=== PATIENT | female | born 1995 | race Caucasian/White ===

== ENCOUNTER 2017-09-09 01:10 | Emergency (ER) | payer OTHER ==
[~2017-09-09 01:10] MED LIST: AMOX-559 PO; CHOL100059 PO
[2017-09-09] MEDS ORDERED: AMOX-559 PO ×2 (01:18→02:00)
--- NOTE | 2017-09-09 01:21 | ER Report ---
History and Physical Time Seen By MD: 01:16 Hx. of Stated Complaint: Sore throat and fever 101.7 HPI/ROS CHIEF COMPLAINT: Sore throat, fever HISTORY OF PRESENT ILLNESS: 22-year-old female presents ambulatory to the ER complaining of severe sore throat since last night. She difficulty swallowing and breathing. Patient notes a fever. She's had some nausea but no vomiting. Patient has a history of a peritonsillar abscess 1 year ago. Patient is a in flight technician for . REVIEW OF SYSTEMS: Respiratory: No cough, no dyspnea. Cardiovascular: No chest pain, no palpitations. Gastrointestinal: No vomiting, no abdominal pain. Musculoskeletal: No back pain. Allergies: Coded Allergies: erythromycin base (Verified Allergy, Mild, RASH, 09/09/17) Home Meds Active Scripts Ondansetron (ZOFRAN ODT) 4 Mg Tab.rapdis, 4 MG PO every 6 hours Y for NAUSEA/ VOMITING, #10 TAB TAKE 1 TABLET BY MOUTH EVERY 12 HOURS Prov:NANDO SO DO 09/09/17 Amoxicillin/Pot Clav 875-125 Mg Tab (AUGMENTIN 875-125 TABLET) 1 Each Tablet, 1 TAB PO Q12H, #20 TAB TAKE ONE TABLET BY MOUTH EVERY 12 HOURS Prov:NANDO SO DO 09/09/17 Oxycodone Hcl/Acetaminophen (PERCOCET 5-325 MG TABLET) 1 Each Tablet, 1 EACH PO Q4-6H Y for PAIN, #15 Prov:NANDO SO DO 09/09/17 Reported Medications Amoxicillin/Pot Clav 875-125 Mg Tab (AUGMENTIN 875-125 TABLET) 1 Each Tablet, 1 TAB PO TID, TAB 09/09/17 Cholecalciferol (Vitamin D3) (VITAMIN D3) 1,000 Unit Capsule, 1000 UNIT PO DAILY , CAPSULE 09/09/16 Discontinued Reported Medications Amoxicillin/Pot Clav 875-125 Mg Tab (AUGMENTIN 875-125 TABLET) 1 Each Tablet, 1 TAB PO Q12H, TAB 09/09/16 Past Medical/Surgical History History of peritonsillar abscess 1 year ago, history of mononucleosis Reviewed Nurses Notes: Yes Old Medical Records Reviewed: Yes Constitutional Vital Sign - Last 24 Hours 09/09/17 09/09/17 09/09/17 09/09/17 01:13 01:15 01:30 01:41 Temp 101.4 Pulse 94 99 90 Resp 16 B/P (MAP) 138/77 116/56 (76) Pulse Ox 94 94 O2 Delivery Room Air 09/09/17 09/09/17 09/09/17 01:45 02:00 02:19 Temp 99.8 Pulse 73 B/P (MAP) 110/52 (71) Pulse Ox 92 97 Physical Exam Vital signs stable, temperature 101.4 General Appearance: The patient is alert, has no immediate need for airway protection and no current signs of toxicity. Moderate distress HEENT: Pupils equal and round no injection. TMs normal, examination of the oropharynx reveals an enlarged right tonsil with uveal deviation. There is gross exudate and erythema noted. Respiratory: Chest is non tender, lungs are clear to auscultation. Cardiac: regular rate and rhythm Gastrointestinal: Abdomen is soft and non tender, no masses, bowel sounds normal. Musculoskeletal: Neck: Neck is supple. Tender lymphadenopathy on the right Extremities have full range of motion and are non tender. Skin: No rashes or lesions. DIFFERENTIAL DIAGNOSIS: After history and physical exam differential diagnosis was considered for tonsillitis, peritonsillar abscess, severe pharyngitis Medical Decision Making ED Course/Re-evaluation Clinical Indication for ER IV: Hydration, IV Access ED Course Patient was admitted to an examination room. H&P was done. The differential diagnoses was considered. On clinical examination. Patient has a peritonsillar abscess. Patient's treated with IV Zosyn, Decadron, Toradol, fentanyl, Zofran. She is discharged home and advised to contact Dr. Tony Gutiérrez in the morning for urgent follow-up today in clinic for consideration of drainage of her peritonsillar abscess. She is cautioned return to the ER for any difficulty breathing Decision to Disposition Date: Sep 09, 2017 Decision to Disposition Time: 01:56 Depart Departure Latest Vital Signs Vital Signs Date Time Temp Pulse Resp B/P (MAP) Pulse Ox O2 Delivery O2 Flow Rate FiO2 09/09/17 02:19 99.8 09/09/17 02:00 73 110/52 (71) 97 09/09/17 01:13 16 Room Air Impression: Primary Impression: Peritonsillar abscess Condition: Improved Disposition: HOME OR SELF-CARE Referrals: CAMRON BUTTS DO (PCP) TONY GUTIÉRREZ JR, MD New Scripts Ondansetron (ZOFRAN ODT) 4 Mg Tab.rapdis 4 MG PO every 6 hours Y for NAUSEA/VOMITING, #10 TAB TAKE 1 TABLET BY MOUTH EVERY 12 HOURS Prov: NANDO SO DO 09/09/17 Amoxicillin/Pot Clav 875-125 Mg Tab (AUGMENTIN 875-125 TABLET) 1 Each Tablet 1 TAB PO Q12H, #20 TAB TAKE ONE TABLET BY MOUTH EVERY 12 HOURS Prov: NANDO SO DO 09/09/17 Oxycodone Hcl/Acetaminophen (PERCOCET 5-325 MG TABLET) 1 Each Tablet 1 EACH PO Q4-6H Y for PAIN, #15 Prov: NANDO SO DO 09/09/17 Patient Instructions: Peritonsillar Abscess (ED) Additional Instructions: Call Dr. Tony Gutiérrez ENT for an urgent appointment today [phone]. He will need to have your abscess drained at some point Return to the ER if you are having trouble breathing NANDO SO DO Sep 09, 2017 01:21
[2017-09-09] MEDS ORDERED: PIPERACILLIN/TAZO*3.375GM VIAL 3.375 GM in NS(*) 0.9% 100 ML ADDVANT BAG 100 ML IVPB ONE (01:25)
[2017-09-09] MEDS ORDERED: fentaNYL CITR 100 MCG/2 ML AMP IVP ONE (01:25)
[2017-09-09] MEDS ORDERED: NS(*) 0.9% 1000 ML BAG 1,000 ML IV ONE (01:25)
[2017-09-09] MEDS ORDERED: KETOROLAC 30 MG/ML VIAL IVP ONE (01:25)
[2017-09-09] MEDS ORDERED: ONDANSETRON 4 MG/2 ML VIAL IVP ONE (01:25)
[2017-09-09] MEDS ORDERED: DEXAMETHASONE SOD PHOS 10MG/ML IVP ONE (01:25)
[2017-09-09 02:00] VITALS: BP 110/52
[2017-09-09] MEDS ORDERED: OXYC-865 PO (02:00)
[2017-09-09] MEDS ORDERED: ONDA4TAB PO (02:00)
[2017-09-09] MEDS ORDERED: METH125V13 IM (13:42)
== END 2017-09-09 02:25 | disposition home or self-care (01) ==
LOC: ER 01:21
DX: J36 Peritonsillar abscess (principal)
CPT/HCPCS: 96365; 96375; 99283; J1100; J1885; J2405; J2543; J3010; J7030; J7050

== ENCOUNTER 2018-01-27 00:52 | Day surgery (SDC) | payer OTHER ==
[~2018-01-27] VITALS: Ht 177.8 cm; Wt 76.7 kg
[~2018-01-27 00:52] MED LIST changes: +METH125V13 IM; +ONDA4TAB PO; +OXYC-865 PO
[2018-01-27] MEDS ORDERED: fentaNYL CITR 250 MCG/5 ML AMP ONE (09:50)
[2018-01-27] MEDS ORDERED: PROPOFOL EMUL(*) 10MG/ML 20 ML 20 ML ONE (09:51)
[2018-01-27] MEDS ORDERED: LIDOCAINE MPF 1% 5 ML VIAL ONE (09:51)
[2018-01-27] MEDS ORDERED: ONDANSETRON 4 MG/2 ML VIAL ONE (09:51)
[2018-01-27] MEDS ORDERED: DEXAMETHASONE SOD PHOS 10MG/ML ONE (09:51)
[2018-01-27] MEDS ORDERED: HALOPERIDOL LACT 5 MG/ML VIAL IM ONE (09:58)
[2018-01-27] MEDS ORDERED: ceFAZolin(*) 2GM/D5W 50ML 50 ML IVPB ONE (10:25)
[2018-01-27 10:39] VITALS: BP 114/74
[2018-01-27] MEDS ORDERED: KETAMINE HCL 200 MG/20 ML MDV ONE (11:00)
[2018-01-27] MEDS ORDERED: SUGAMMADEX SOD 200 MG/2 ML SDV ONE (11:13)
[2018-01-27] MEDS ORDERED: NORMOSOL R SOLN(*) 1000 ML BAG 1,000 ML IV PRN (11:20)
[2018-01-27] MEDS ORDERED: MIDAZOLAM 2 MG/2 ML VIAL IVP PRN (11:20)
[2018-01-27] MEDS ORDERED: LIDOCAINE/SOD BICARB 8.4% SYR ID ONE (11:20)
[2018-01-27] MEDS ORDERED: FAMOTIDINE 20 MG TAB PO ONE (11:20)
[2018-01-27] MEDS ORDERED: fentaNYL CITR 100 MCG/2 ML AMP ONE (11:51)
[2018-01-27] MEDS ORDERED: AMOX500T10 PO (12:26)
[2018-01-27] MEDS ORDERED: OXYC-865 PO (12:27)
[2018-01-27 12:30] VITALS: BP 119/71
[2018-01-27 12:45] VITALS: BP 124/74
[2018-01-27 12:50] VITALS: BP 125/84
[2018-01-27 12:51] VITALS: BP 122/89
--- NOTE | 2018-01-27 13:16 | OPERATIVE REPORT 1 ---
EVENT DATE: January 27, 2018 SURGEON: Tony Gutiérrez MD ANESTHESIOLOGIST: Jenaro Jamison MD ANESTHESIA: LMA PROCEDURE Tonsillectomy. PREOPERATIVE DIAGNOSIS Recurrent peritonsillar abscess. POSTOPERATIVE DIAGNOSIS Recurrent peritonsillar abscess. INDICATIONS Please refer to the preoperative note. DESCRIPTION OF PROCEDURE The patient was positively identified in the preoperative area. She was accompanied there by her pet trainer. Risks were again explained, including but not limited to, bleeding, infection, and those associated with anesthesia. She acknowledged understanding of those risks. She was then brought back to the operative suite, laid supine on the operative table and anesthesia was administered. Once asleep, the patient was positioned, then prepped and draped in usual sterile fashion. A McIvor mouth gag was placed in the patient's oral cavity. Red rubber catheter was placed through the right nostril and utilized to suspend the soft palate. The patient was noted to have 2+ tonsils bilaterally. The right tonsil was grasped with curved Allis forceps and carefully dissected from the lateral pharyngeal wall with Bovie electrocautery. In a similar fashion, the contralateral tonsil was removed, and abscess was encountered and suctioned. Tonsil packs were then removed. Hemostasis was further obtained with suction Bovie electrocautery. The patient was then turned to Anesthesia for emergence. ESTIMATED BLOOD LOSS 25 mL. COMPLICATIONS No complications. MTDD
== END 2018-01-27 12:30 | disposition home or self-care (01) ==
LOC: OR 00:52
PROVIDERS: ATTEND Otolaryngology
DX: J36 Peritonsillar abscess (principal)
CPT/HCPCS: 42826; 81025; 88304; J1100; J1630; J2001; J2250; J2405; J2704; J3010; J3490; J0690